=== PATIENT | male | born 2000 | race African-American/Black ===

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

== ENCOUNTER 2023-07-14 18:38 | Emergency (ER) | payer SELFPAY ==
[~2023-07-14] VITALS: Ht 170.2 cm; Wt 72.0 kg
[2023-07-14 18:41] VITALS: BP 134/85; O2SAT 97
[2023-07-14] MEDS ORDERED: TETANUS, DIPHTHERIA, PERTUSSIS VAC/PF 0.5ML (>10YR OLD) IM ONE (19:30)
[2023-07-14] MEDS ORDERED: BACITRACIN ZINC OINT UDPKT TOP ONE (19:30)
[2023-07-14] MEDS ORDERED: LIDOCAINE HCL/PF 1% 10 MG/ML 5ML VIAL INFIL ONE (19:30)
[2023-07-14 23:04] VITALS: PULSE 100; RESP 20; TEMP 98.6
== END 2023-07-14 23:05 | disposition home or self-care (01) ==
LOC: ER 18:38
DX: S61.412A Laceration without foreign body of left hand, initial encounter (principal); J45.909 Unspecified asthma, uncomplicated
CPT/HCPCS: 73130; 90715; 12001; 90471; 99283; J3490; Z7610 ×2

== ENCOUNTER 2023-07-24 17:05 | Emergency (ER) | payer SELFPAY ==
[~2023-07-24] VITALS: Ht 175.3 cm; Wt 59.0 kg
[2023-07-24 17:12] VITALS: BP 143/79; PULSE 78; RESP 16; TEMP 97.9; O2SAT 100
== END 2023-07-24 20:53 | disposition left against medical advice (07) ==
LOC: ER 17:05
DX: Z48.02 Encounter for removal of sutures (principal); Z53.21 Procedure and treatment not carried out due to patient leaving prior to being seen by health care provider
CPT/HCPCS: 99281